=== PATIENT | female | born 1945 | race Caucasian/White ===

== ENCOUNTER 2017-04-20 16:13 | Inpatient (IN) | payer MEDICARE ==
[~2017-04-20] VITALS: Ht 157.5 cm; Wt 100.0 kg
[~2017-04-20 16:13] MED LIST: AMLO5TAB96 PO; DICL75 PO; FURO1TAB93 PO; HYDR-3533 PO; LORA-392 PO; LOSA50TA PO; METO50TA PO; MMW SSP; MSIR15 PO; OMEP20CA5 PO; PENI500T PO; POTA20IN3 PO; REME45TA PO
[2017-04-23] MEDS ORDERED: INSULIN HUMAN REGULAR 1,000 UNITS/10 ML VIAL SQ PRN (07:30)
[2017-04-23] MEDS ORDERED: LACTATED RINGER'S 1000 ML IV PRN (07:30)
[2017-04-23] MEDS ORDERED: SODIUM CHLORID 0.9% 500 ML IV PRN (07:30)
[2017-04-23] MEDS ORDERED: POVIDONE IODINE 5% (ANTISEPSIS KIT) 4 APPLICATIONS EACH NARE PRN (07:30)
[2017-04-23] MEDS ORDERED: CHLORHEXIDINE GLUCONATE 4% SOLN 120 ML BTL TOPICAL SCH (07:30)
[2017-04-23] MEDS ORDERED: METOPROLOL TARTRATE 25 MG TAB PO PRN (07:30)
[2017-04-23] MEDS ORDERED: CHLORHEXIDINE GLUCONATE 2 % 1 PACK (2 CLOTHS) TOPICAL PRN (07:30)
[2017-04-23] MEDS ORDERED: LOSA50TA PO (07:33)
[2017-04-23] MEDS ORDERED: METO50TA PO (07:33)
[2017-04-23] MEDS ORDERED: DICL75TA PO (07:33)
[2017-04-23] MEDS ORDERED: OMEP20TA PO (07:33)
[2017-04-23] MEDS ORDERED: AMLO5TAB2 PO (07:33)
[2017-04-23] MEDS ORDERED: LORA-373 PO (07:33)
[2017-04-23] MEDS ORDERED: MIRT45TA PO (07:33)
[2017-04-23] MEDS ORDERED: MSIR15 PO (07:33)
[2017-04-23] MEDS ORDERED: FURO40TA PO (07:33)
[2017-04-23] MEDS ORDERED: POTA-163 PO (07:33)
[2017-04-23 07:41] VITALS: BP 135/67; PULSE 55; RESP 20; TEMP 98.2; O2SAT 97
[2017-04-23] MEDS ORDERED: GENTAMICIN SULFATE 80 MG/2 ML VIAL ONE (07:52)
[2017-04-23] MEDS ORDERED: METF500T PO (08:02)
[2017-04-23] MEDS ORDERED: ZAFI1TAB7 PO (08:02)
[2017-04-23] MEDS ORDERED: HYDR-3583 PO ×2 (08:02→08:47)
[2017-04-23] MEDS ORDERED: TRAM50TA PO (08:05)
[2017-04-23] MEDS ORDERED: POTA10TA2 PO (08:05)
[2017-04-23] MEDS ORDERED: TRANEXAMIC ACID INJ 1,500 MG in SODIUM CHLORIDE 0.9% INJ 100 ML IV SCH (08:15)
[2017-04-23] MEDS ORDERED: FAMOTIDINE 20 MG/2 ML VIAL ONE (08:29)
[2017-04-23] MEDS ORDERED: ACETAMINOPHEN 1000 MG/100 ML VIAL IV ONE (08:29)
[2017-04-23] MEDS ORDERED: DEXAMETHASONE SOD PHOS 4 MG/ML VIAL ONE (08:30)
[2017-04-23] MEDS ORDERED: XARE10TA PO (08:47)
[2017-04-23] MEDS ORDERED: WALKER/ADULT/FO1 MIS (08:47)
--- NOTE | 2017-04-23 08:48 | HHI.FF ---
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 My clinical findings support the need for the requested home health care services because: Ltd mobility - disease progression I certify that my clinical findings support that this patient is homebound because: Post-op weakness Artem Martinez Apr 23, 2017 08:48
[2017-04-23] MEDS ORDERED: ceFAZolin 2 GM PREMIX 50 ML ONE (09:09)
[2017-04-23] MEDS ORDERED: SODIUM CHLOR 0.9% 250 ML INJ 250 ML ONE (09:09)
[2017-04-23] MEDS ORDERED: VANCOMYCIN HCL 1000 MG VIAL ONE (09:09)
[2017-04-23] MEDS ORDERED: VANCOMYCIN HCL 1000 MG VIAL OTHER ONE (09:15)
[2017-04-23] MEDS ORDERED: LORazepam 0.5 MG TAB PO PRN (11:15)
[2017-04-23] MEDS ORDERED: diphenhydrAMINE HCL 25 MG CAP PO PRN (11:15)
[2017-04-23] MEDS ORDERED: ONDANSETRON HCL 4 MG/2 ML VIAL IVP PRN (11:15)
[2017-04-23] MEDS ORDERED: Post-op Orders (for Pharmacy) MISC XX ONE (11:15)
[2017-04-23] MEDS ORDERED: SODIUM CHLORIDE 0.9% FLUSH 5 ML FLUSH IVF PRN (11:15)
[2017-04-23] MEDS ORDERED: MORPHINE SULFATE 15 MG TAB PO PRN (11:15)
[2017-04-23] MEDS ORDERED: NALOXONE HCL 0.4 MG/ML AMP IV PRN (11:15)
--- NOTE | 2017-04-23 11:16 | PD.OP ---
cc: Fernandez Blandon MD Operative Report Date of Surgery: Apr 23, 2017 Preoperative Diagnosis: Left distal femur fracture nonunion Postoperative Diagnosis: Procedure: Removal of deep hardware left femur, open treatment with plating of left distal femur fracture nonunion, iliac crest bone grafting with stem cell graft Surgeon: Fernandez Blandon Educational Manager(s): CANDELARIA James PA-C The surgical procedure was assisted by my physician transport assistant. My P.A. presence was necessary throughout this case for the manipulation and positioning of the surgical extremity. My P.A. was assisting me throughout the duration of this procedure. The skill set of a physician transport assistant was medically necessary to complete this procedure. During the surgical case the surgical product sales consultant was working at the back table and the physician transport assistant was directly assisting me. Operation and Findings: Diana previously had a left distal femur fracture treated with open reduction internal fixation. Patient has gone on to develop a nonunion of the fracture. Informed consent was obtained, and operative site was marked. Patient was brought to the OR, placed on OR table, and given IV sedation with GETA. IV antibiotics were administered and timeout procedure was performed. The operative leg was prepped with alcohol, followed with Hibiclens, draped in usual sterile fashion. A timeout procedure was performed. The procedure began with a 8-inch incision over the lateral aspect of the distal femur. Subcutaneous tissue was dissected with Bovie. Iliotibial band was split in line with fibers. At this point the plate was exposed. Scar tissue was incised. Vastus lateralis was elevated anteriorly. Screws were now loosened and removed. There was one broken screw that was removed with broken screw removal instruments. Fluoroscopy confirmed removal of all hardware. At this point the fracture was visualized. At this point attention was turned to debridement of the nonunion. Curettes and rongeurs were used to debride the fibrous tissue around the bone. A TPS bur was also used to debride the bone edges back to healthy bleeding bone. At this point attention was turned to reduction of fracture. Traction was applied. Fracture was manipulated. The fracture reduced into excellent alignment. Steinmann pins were used to hold provisional fixation. At this point attention was turned to plate placement. A Synthes lateral condylar plate was selected and placed underneath the vastus lateralis. Steinmann pins were used to hold the plate to bone. Multiplanar fluoroscopy confirmed appropriate placement of plate. Multiple 4.5 cortical screws were now placed to compress the plate to bone. A periarticular clamp was used to compress the distal femur to the plate. Multiple locking screws were now placed in the distal segment of the distal femur. Additional screws were placed into the femoral shaft. All screws were predrilled and premeasured for appropriate length. Wound was thoroughly irrigated. Next attention was turned to iliac crest bone grafting. A 3 cm incision was made over the iliac crest. The fascia was elevated off of bone. An osteotome was used to create a window in the cortex. Curettes were now used to obtain bone graft from the iliac crest. A Nucell stem cell graft was now opened and mixed with 3 cc of blood. The stem cells were now mixed with iliac crest. The defects around the fracture line of the distal femur were now packed with bone graft. Final fluoroscopy revealed excellent alignment of fracture with well- placed hardware. Fascia was closed with #1 Vicryl. Subcutaneous tissue was closed with 3-0 Vicryl. Skin was closed with dwayne. Sterile dressings were applied. The patient was placed into a knee immobilizer and transferred to recovery in stable condition. Needle and sponge counts were correct. Fernandez Blandon MD Apr 23, 2017 11:15
[2017-04-23] MEDS ORDERED: DO NOT ADM ANY ANTICOAGULANT DRUGS PRN (11:45)
[2017-04-23] MEDS ORDERED: MIDAZOLAM HCL 2 MG/2 ML VIAL ONE (11:58)
[2017-04-23] MEDS ORDERED: fentaNYL CITRATE 250 MCG/5 ML AMP ONE (11:58)
[2017-04-23] MEDS ORDERED: LACTATED RINGER'S 1000 ML INJ 1,000 ML IV ONE (12:00)
[2017-04-23] MEDS ORDERED: PROPOFOL 200 MG/20 ML AMP IV ONE (12:00)
[2017-04-23] MEDS ORDERED: ePHEDrine/NS 25 MG/5 ML SYR IV ONE (12:00)
[2017-04-23] MEDS ORDERED: NEOSTIGMINE 3 MG/3 ML SYR IV ONE (12:00)
[2017-04-23] MEDS ORDERED: ONDANSETRON HCL 4 MG/2 ML VIAL IV PUSH ONE (12:00)
[2017-04-23] MEDS ORDERED: *morphine SULFATE 8 MG/ML PERIprocedure ONLY ONE ×3 (12:25→13:17)
[2017-04-23 13:30] VITALS: BP 150/91; PULSE 62; RESP 18; TEMP 97.2; O2SAT 95
[2017-04-23] MEDS: CALCIUM/VITAMIN D 250 MG/125 U TAB PO SCH ×2 (13:56→16:58)
[2017-04-23] MEDS: ACETAMINOPHEN/HYDROcodone 325 MG/7.5 MG TAB PO PRN ×3 (13:57→22:37)
[2017-04-23] MEDS: LACTATED RINGER'S 1000 ML INJ 1,000 ML IV SCH (13:59)
[2017-04-23] MEDS ORDERED: ERGOCALCIFEROL (VIT D2) 50,000 UNIT CAP PO SCH (14:00)
--- NOTE | 2017-04-23 14:34 | RADRPT ---
EXAM DATE/TIME: 04/23/2017 10:49 [place] COMPARISON: No previous studies available for comparison. INDICATIONS : Left femur hardware removal. Open reduction internal fixation. MEDICAL HISTORY : None. SURGICAL HISTORY : None. ENCOUNTER: Initial ACUITY: 1 day PAIN SCORE: Non-responsive. LOCATION: Left Knee. CONCLUSION: Fluoroscopic images during placement of plate and screws along the distal left femur fixating fractur eGuerita Oneill MD on April 23, 2017 at 14:32 Board Certified Radiologist. This report was verified electronically.
--- NOTE | 2017-04-23 15:11 | EKG ---
Date Performed: 04/23/2017 Time Performed: 08:47:43 PTAGE: 71 years EKG: SINUS BRADYCARDIA Baseline artifact Compared to previous tracing, the patient is now bradyc ardic BORDERLINE ECG PREVIOUS TRACING : 09/10/1998 09.54 DOCTOR: Magda Squires Interpretating Date/Time 04/23/2017 15:10:26
[2017-04-23 16:00] VITALS: BP 124/61; PULSE 64; RESP 18; TEMP 96; O2SAT 95
[2017-04-23] MEDS: ceFAZolin 2 GM PREMIX 50 ML IV SCH (16:58)
[2017-04-23] MEDS: ZAFIRLUKAST 20 MG TAB PO SCH (16:58)
[2017-04-23] MEDS: MORPHINE SULFATE 4 MG/ML INJ IV PUSH PRN ×2 (16:58→19:59)
[2017-04-23 19:00] VITALS: BP 124/61; PULSE 87; RESP 16; TEMP 98.2; O2SAT 97
[2017-04-23] MEDS: DOCUSATE SODIUM 50 MG/SENNA 8.6 MG TAB PO SCH (20:02)
[2017-04-23] MEDS: POTASSIUM CHLORIDE 10 MEQ CONTROLLED RELEASE TAB PO SCH (20:03)
[2017-04-23] MEDS: METOPROLOL TARTRATE 50 MG TAB PO SCH (20:03)
[2017-04-23] MEDS: SODIUM CHLORIDE 0.9% FLUSH 5 ML FLUSH IVF SCH (20:04)
[2017-04-23] MEDS: MIRTAZAPINE 15 MG TAB PO SCH (20:04)
[2017-04-23] MEDS: FUROSEMIDE 40 MG TAB PO SCH (20:04)
[2017-04-23 22:20] VITALS: O2SAT 96
[2017-04-23] MEDS: VANCOMYCIN INJ 1,000 MG in SODIUM CHLOR 0.9% 250 ML INJ 250 ML IV SCH (22:23)
[2017-04-24] VITALS (7 sets, daily range): BP systolic 111–175; BP diastolic 58–74; PULSE 62–88; RESP 16–22; TEMP 96–99; O2SAT 93–100
[2017-04-24] MEDS: ceFAZolin 2 GM PREMIX 50 ML IV SCH ×3 (01:23→15:48)
[2017-04-24] MEDS: LACTATED RINGER'S 1000 ML INJ 1,000 ML IV SCH ×2 (01:27→15:00)
[2017-04-24] MEDS: MORPHINE SULFATE 4 MG/ML INJ IV PUSH PRN ×5 (04:41→19:28)
[2017-04-24 05:35] LABS: HEMATOCRIT 29.1 % (35.0-46.0); REVIEW FLAG FINAL
[2017-04-24] MEDS: ZAFIRLUKAST 20 MG TAB PO SCH ×2 (06:25→15:48)
--- NOTE | 2017-04-24 06:39 | PD.ORT.PN ---
Subjective Subjective Remarks Pain controlled. No new complaints Objective Vitals Vital Signs Date Time Temp Pulse Resp B/P Pulse Ox O2 Delivery O2 Flow Rate FiO2 04/24/17 04:00 97.4 62 16 175/71 98 04/24/17 00:00 98.3 88 17 175/74 99 04/23/17 22:20 96 Nasal Cannula 2.00 04/23/17 19:24 18 04/23/17 19:00 98.2 87 16 124/61 97 04/23/17 17:03 18 04/23/17 16:00 96.0 64 18 124/61 95 04/23/17 13:30 97.2 62 18 150/91 95 04/23/17 13:00 62 16 133/62 93 Nasal Cannula 2 04/23/17 12:45 67 16 146/65 93 Nasal Cannula 2 04/23/17 12:35 16 04/23/17 12:30 59 16 136/63 92 Nasal Cannula 2 04/23/17 12:15 61 14 154/77 92 Nasal Cannula 2 04/23/17 12:00 60 14 150/74 94 Simple Mask 04/23/17 11:45 65 14 152/79 95 Simple Mask 04/23/17 11:40 98.2 63 14 141/75 93 Simple Mask 04/23/17 07:41 98.2 55 20 135/67 97 I/O 04/23/17 04/23/17 04/23/17 04/24/17 04/24/17 04/24/17 07:00 15:00 23:00 07:00 15:00 23:00 Intake Total 480 ml 480 ml Output Total 2000 ml Balance 480 ml -1520 ml Intake Oral 480 ml 480 ml Output Urine Total 2000 ml # Voids 2 # Bowel Movements 0 0 Result Diagram: 04/24/17 0509 04/24/17 0509 Imaging Last 72 hours Impressions Knee X-Ray 04/23/17 0000 Signed Impressions: Service Date/Time: April 10:49 - CONCLUSION: Fluoroscopic images during placement of plate and screws along the distal left femur fixating fracture. Joao Oneill MD Objective Remarks Left lower extremity: Clean dry dressings intact. Immobilizer in place. Intact sensation distally with strong dorsiflexion and plantarflexion of feet Assessment & Plan Assessment and Plan Left distal femur nonunion status post removal of hardware and ORIF with iliac crest bone graft and stem cell POD 1 Nonweightbearing left lower extremity Knee immobilizer at all times except for passive range of motion of knee [employer] for lifting strap on knee immobilizer Lovenox Incentive spirometry Plan for discharge to home on Thursday We'll work toward getting approval for [facility] Case management for dressing changes Jacinto Jimenez Jr. Apr 24, 2017 06:39
[2017-04-24] MEDS: METOPROLOL TARTRATE 50 MG TAB PO SCH ×2 (08:32→21:17)
[2017-04-24] MEDS: LOSARTAN 50 MG TAB PO SCH (08:32)
[2017-04-24] MEDS: CHOLECALCIFEROL (VIT D3) 1000 UNIT TAB PO SCH (08:32)
[2017-04-24] MEDS: amLODIPine BESYLATE 5 MG TAB PO SCH (08:32)
[2017-04-24] MEDS: POTASSIUM CHLORIDE 10 MEQ CONTROLLED RELEASE TAB PO SCH ×2 (08:32→21:17)
[2017-04-24] MEDS: CALCIUM/VITAMIN D 250 MG/125 U TAB PO SCH ×3 (08:32→17:44)
[2017-04-24] MEDS: ACETAMINOPHEN/HYDROcodone 325 MG/7.5 MG TAB PO PRN ×5 (08:33→21:17)
[2017-04-24] MEDS: metFORMIN HCL 500 MG TAB PO SCH (08:33)
[2017-04-24] MEDS: FUROSEMIDE 40 MG TAB PO SCH ×2 (08:33→17:45)
[2017-04-24] MEDS: PANTOPRAZOLE SOD 20 MG DELAYED RELEASE TAB PO SCH (08:33)
[2017-04-24] MEDS: DOCUSATE SODIUM 50 MG/SENNA 8.6 MG TAB PO SCH ×2 (08:33→21:17)
[2017-04-24] MEDS: VANCOMYCIN INJ 1,000 MG in SODIUM CHLOR 0.9% 250 ML INJ 250 ML IV SCH ×2 (08:34→21:17)
[2017-04-24] MEDS: SODIUM CHLORIDE 0.9% FLUSH 5 ML FLUSH IVF SCH ×2 (08:40→21:18)
[2017-04-24] MEDS: ENOXAPARIN SODIUM 30 MG/0.3 ML SYRINGE SQ SCH (11:21)
[2017-04-24] MEDS: MIRTAZAPINE 15 MG TAB PO SCH (21:17)
[2017-04-25] VITALS (8 sets, daily range): BP systolic 108–193; BP diastolic 55–79; PULSE 70–82; RESP 17–19; TEMP 97.4–100.9; O2SAT 94–99
[2017-04-25] MEDS: ceFAZolin 2 GM PREMIX 50 ML IV SCH ×2 (00:55→07:44)
[2017-04-25] MEDS: LACTATED RINGER'S 1000 ML INJ 1,000 ML IV SCH ×2 (00:55→16:00)
[2017-04-25] MEDS: ACETAMINOPHEN/HYDROcodone 325 MG/7.5 MG TAB PO PRN ×6 (00:55→20:55)
[2017-04-25] MEDS ORDERED: BACITRACIN TOP OINT 15 GM TUBE TOPICAL PRN (03:30)
[2017-04-25] MEDS: ZAFIRLUKAST 20 MG TAB PO SCH ×2 (05:15→15:45)
--- NOTE | 2017-04-25 06:50 | PD.ORT.PN ---
Subjective Subjective Remarks POD 2 s/p AYESHA with ORIF and ICBG left distal femur -doing well. reports pain in leg. out of bed with therapy Objective Vitals Vital Signs Date Time Temp Pulse Resp B/P Pulse Ox O2 Delivery O2 Flow Rate FiO2 04/25/17 06:02 97.4 72 18 130/69 97 04/25/17 00:14 98.0 70 18 128/55 96 04/24/17 20:49 97.7 76 18 137/65 95 04/24/17 19:33 18 04/24/17 18:45 18 04/24/17 17:46 127/63 04/24/17 16:00 96.0 64 20 111/58 93 04/24/17 12:00 97.4 64 22 125/67 97 04/24/17 08:00 99.0 69 22 125/60 93 I/O 04/24/17 04/24/17 04/24/17 04/25/17 04/25/17 04/25/17 07:00 15:00 23:00 07:00 15:00 23:00 Intake Total 480 ml 240 ml 2534 ml 906 ml Output Total 2000 ml 3000 ml 400 ml Balance -1520 ml -2760 ml 2534 ml 506 ml Intake Oral 480 ml 240 ml 480 ml IV Total 2534 ml 426 ml Output Urine Total 2000 ml 3000 ml 400 ml # Bowel Movements 0 Result Diagram: 04/24/17 0509 04/24/17 0509 Imaging Last 72 hours Impressions Knee X-Ray 04/23/17 0000 Signed Impressions: Service Date/Time: April 10:49 - CONCLUSION: Fluoroscopic images during placement of plate and screws along the distal left femur fixating fracture. Joao Oneill MD Objective Remarks Left lower extremity: Clean dry dressings intact. Immobilizer in place. Intact sensation distally with strong dorsiflexion and plantarflexion of feet Assessment & Plan Assessment and Plan 1) Left distal femur nonunion status post removal of hardware and ORIF with iliac crest bone graft and stem cell POD 2 Nonweightbearing left lower extremity Knee immobilizer at all times except for passive range of motion of knee Lovenox Incentive spirometry Plan for discharge to home on Thursday with [facility] We'll work toward getting approval for [facility] Case management for dressing changes f/u with Kaylyn or PA in 2 weeks Artem Martinez Apr 25, 2017 06:50
[2017-04-25] MEDS: metFORMIN HCL 500 MG TAB PO SCH (07:41)
[2017-04-25] MEDS: PANTOPRAZOLE SOD 20 MG DELAYED RELEASE TAB PO SCH (07:41)
[2017-04-25] MEDS: LOSARTAN 50 MG TAB PO SCH (07:41)
[2017-04-25] MEDS: MORPHINE SULFATE 4 MG/ML INJ IV PUSH PRN ×4 (07:41→23:06)
[2017-04-25] MEDS: CHOLECALCIFEROL (VIT D3) 1000 UNIT TAB PO SCH (07:42)
[2017-04-25] MEDS: CALCIUM/VITAMIN D 250 MG/125 U TAB PO SCH ×3 (07:42→17:55)
[2017-04-25] MEDS: METOPROLOL TARTRATE 50 MG TAB PO SCH ×2 (07:43→20:54)
[2017-04-25] MEDS: POTASSIUM CHLORIDE 10 MEQ CONTROLLED RELEASE TAB PO SCH ×2 (07:43→20:54)
[2017-04-25] MEDS: SODIUM CHLORIDE 0.9% FLUSH 5 ML FLUSH IVF SCH ×2 (07:54→20:53)
[2017-04-25] MEDS: FUROSEMIDE 40 MG TAB PO SCH ×2 (07:54→17:52)
[2017-04-25] MEDS: DOCUSATE SODIUM 50 MG/SENNA 8.6 MG TAB PO SCH ×2 (07:55→20:54)
[2017-04-25] MEDS: amLODIPine BESYLATE 5 MG TAB PO SCH (08:00)
[2017-04-25] MEDS: ENOXAPARIN SODIUM 30 MG/0.3 ML SYRINGE SQ SCH (11:05)
[2017-04-25] MEDS: MIRTAZAPINE 15 MG TAB PO SCH (20:54)
[2017-04-26] VITALS: BP 112/59; PULSE 79; RESP 18; TEMP 99.9; O2SAT 97
[2017-04-26] MEDS: ACETAMINOPHEN/HYDROcodone 325 MG/7.5 MG TAB PO PRN ×5 (02:36→15:13)
[2017-04-26] MEDS: LACTATED RINGER'S 1000 ML INJ 1,000 ML IV SCH (04:30)
[2017-04-26] MEDS: ZAFIRLUKAST 20 MG TAB PO SCH ×2 (06:07→16:00)
--- NOTE | 2017-04-26 06:45 | PD.ORT.PN ---
Subjective Subjective Remarks POD 3 s/p AYESHA with ORIF and ICBG left distal femur -doing well. reports pain in leg. out of bed with therapy. improving Objective Vitals Vital Signs Date Time Temp Pulse Resp B/P Pulse Ox O2 Delivery O2 Flow Rate FiO2 04/26/17 00:00 99.9 79 18 112/59 97 04/25/17 21:21 98 21 04/25/17 19:58 100.4 75 19 135/79 98 04/25/17 16:00 100.9 79 18 108/57 95 04/25/17 15:51 16 04/25/17 15:34 16 04/25/17 12:11 94 21 04/25/17 12:00 98.6 71 17 121/65 95 04/25/17 08:00 99.3 71 17 158/70 98 I/O 04/25/17 04/25/17 04/25/17 04/26/17 04/26/17 04/26/17 07:00 15:00 23:00 07:00 15:00 23:00 Intake Total 906 ml 960 ml 360 ml Output Total 400 ml Balance 506 ml 960 ml 360 ml Intake Oral 480 ml 960 ml 360 ml IV Total 426 ml Output Urine Total 400 ml # Voids 9 3 # Bowel Movements 1 0 Result Diagram: 04/24/17 0509 04/24/17 0509 Imaging Last 72 hours Impressions Knee X-Ray 04/23/17 0000 Signed Impressions: Service Date/Time: April 10:49 - CONCLUSION: Fluoroscopic images during placement of plate and screws along the distal left femur fixating fracture. Joao Oneill MD Objective Remarks Left lower extremity: Clean dry dressings intact. Immobilizer in place. Intact sensation distally with strong dorsiflexion and plantarflexion of feet Assessment & Plan Assessment and Plan 1) Left distal femur nonunion status post removal of hardware and ORIF with iliac crest bone graft and stem cell POD 3 Nonweightbearing left lower extremity Knee immobilizer at all times except for passive range of motion of knee Lovenox Incentive spirometry Plan for discharge to home today with [facility] We'll work toward getting approval for [facility] Case management for dressing changes f/u with Kaylyn or [facility] in 2 weeks Artem Martinez Apr 26, 2017 06:45
--- NOTE | 2017-04-26 06:48 | HHI.DS ---
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 Immobilizer in place. Intact sensation distally with strong dorsiflexion and plantarflexion of feet Hospital Course Patient admitted from outpatient basis due to nonunion of a previous ORIF of the left distal femur fracture. Total procedure well and was admitted 6 north. She is out of bed on postop day 1 with therapy. Motion was begun on postoperative day 1. Her pain was relatively well tolerated. She is ambulating with a walker on postoperative day 2. On possibly 3, she was ambulating with a walker, controlled, she is hemodynamically stable and fit for discharge home with home healthcare services. She'll be discharged home today with home health care. She will remain nonweightbearing on left leg. She'll maintain her knee was also positive support on passive motion of the knee. She' ll perform daily dressing changes of the left knee. She'll follow Dr. Patiño or his PA in 2 weeks Pt Condition on Discharge: Fair Discharge Disposition: Disch w/ Home Health Serv Discharge Instructions Diet Instructions: As Tolerated, No Restrictions Activities You Can Perform: Non Weight Bearing Follow up Referrals: Orthopedics - 05/07/17 @ [facility] with Fernandez Patiño MD New Medications: Hydrocodone-Acetaminophen (Hydrocodone-Acetaminophen) 10-325 mg Tab 1 TAB PO Q4H PRN PAIN #60 Ref 0 TAB Rivaroxaban (Xarelto) 10 Mg Tab 10 MG PO DAILY Blood Clot Prevention #21 Ref 0 TAB Walker/Adult/Folding (Walker/Adult/Folding) 1 Mis Mis 1 EA .ROUTE DIRECTED #1 Ref 0 EA Continued Medications: Amlodipine (Amlodipine) 5 Mg Tab 5 MG PO DAILY Blood Pressure Management #30 Ref 0 TAB Furosemide (Furosemide) 40 Mg Tab 40 MG PO BID #60 Ref 0 TAB Lorazepam (Lorazepam) 0.5 Mg Tab 0.5 MG PO BID PRN ANXIETY Ref 0 TAB Losartan (Losartan) 50 Mg Tab 50 MG PO DAILY Blood Pressure Management #30 Ref 0 TAB Metformin (Metformin) 500 Mg Tab 500 MG PO DAILY With meals Blood Sugar Management #60 Ref 0 TAB Metoprolol Tartrate (Metoprolol Tartrate) 50 Mg Tab 50 MG PO BID #60 Ref 0 TAB Mirtazapine (Mirtazapine) 45 Mg Tab 45 MG PO HS Depression Control #30 Ref 0 TAB Morphine IR (Morphine IR) 15 Mg Tab 15 MG PO Q4H PRN PAIN Ref 0 TAB Omeprazole (Omeprazole) 20 Mg Tab 20 MG PO DAILY #30 Ref 0 TAB Potassium Chloride ER (Potassium Chloride ER) 10 Meq Tab 10 MEQ PO BID Electrolyte Replacement #60 Ref 0 TAB Zafirlukast (Accolate) 20 Mg Tab 20 MG PO BIDAC Asthma Management #60 Ref 0 TAB Discontinued Medications: Hydrocodone-Acetaminophen (Hydrocodone-Acetaminophen) 10-325 mg Tab 1 TAB PO Q6H PRN PAIN Ref 0 TAB Tramadol (Tramadol) 50 Mg Tab 50 MG PO Q6H PRN PAIN Ref 0 TAB Artem Martinez Apr 26, 2017 06:48
[2017-04-26 08:00] VITALS: BP 162/64; PULSE 74; RESP 20; TEMP 98.5; O2SAT 93
[2017-04-26] MEDS: SODIUM CHLORIDE 0.9% FLUSH 5 ML FLUSH IVF SCH (09:00)
[2017-04-26] MEDS: FUROSEMIDE 40 MG TAB PO SCH (09:00)
[2017-04-26] MEDS: metFORMIN HCL 500 MG TAB PO SCH (09:24)
[2017-04-26] MEDS: CHOLECALCIFEROL (VIT D3) 1000 UNIT TAB PO SCH (09:24)
[2017-04-26] MEDS: PANTOPRAZOLE SOD 20 MG DELAYED RELEASE TAB PO SCH (09:24)
[2017-04-26] MEDS: CALCIUM/VITAMIN D 250 MG/125 U TAB PO SCH ×2 (09:25→12:31)
[2017-04-26] MEDS: DOCUSATE SODIUM 50 MG/SENNA 8.6 MG TAB PO SCH (09:25)
[2017-04-26] MEDS: METOPROLOL TARTRATE 50 MG TAB PO SCH (09:25)
[2017-04-26] MEDS: amLODIPine BESYLATE 5 MG TAB PO SCH (09:25)
[2017-04-26] MEDS: LOSARTAN 50 MG TAB PO SCH (09:25)
[2017-04-26] MEDS: POTASSIUM CHLORIDE 10 MEQ CONTROLLED RELEASE TAB PO SCH (09:26)
[2017-04-26] MEDS: ENOXAPARIN SODIUM 30 MG/0.3 ML SYRINGE SQ SCH (09:27)
[2017-04-26 12:00] VITALS: BP 142/69; PULSE 67; RESP 20; TEMP 97.8; O2SAT 96
[2017-04-26 16:15] VITALS: RESP 16
== END 2017-04-26 17:04 | disposition home health service (06) | DRG 481 ==
LOC: HSDI 04-23 06:47 → N06B 04-23 13:24
PROVIDERS: ADMIT Orthopaedic Surgery Orthopaedic Trauma; ATTEND Orthopaedic Surgery Orthopaedic Trauma
PROC: 0QPC04Z Removal of Internal Fixation Device from Left Lower Femur, Open Approach (ICD-10-PCS; 2017-04-23)
PROC: 0QB30ZZ Excision of Left Pelvic Bone, Open Approach (ICD-10-PCS; 2017-04-23)
PROC: 0QUC07Z Supplement Left Lower Femur with Autologous Tissue Substitute, Open Approach (ICD-10-PCS; 2017-04-23)
PROC: 0QSC04Z Reposition Left Lower Femur with Internal Fixation Device, Open Approach (ICD-10-PCS; principal; 2017-04-23 09:01)
DX: S72.402K Unspecified fracture of lower end of left femur, subsequent encounter for closed fracture with nonunion (principal); Z68.41 Body mass index [BMI] 40.0-44.9, adult; J44.9 Chronic obstructive pulmonary disease, unspecified; I10 Essential (primary) hypertension; I25.10 Atherosclerotic heart disease of native coronary artery without angina pectoris; E78.5 Hyperlipidemia, unspecified; J45.909 Unspecified asthma, uncomplicated; E66.9 Obesity, unspecified; E11.9 Type 2 diabetes mellitus without complications; Z79.84 Long term (current) use of oral hypoglycemic drugs; M81.0 Age-related osteoporosis without current pathological fracture
CPT/HCPCS: 73560; 76000; 82565; 82652; 82948; 85014; 85018; 87015; 87070; 87102; 87116; 87176; 87205; 87206; 93005; 94150; C1713; C1769; J0131; J0690; J1100; J1580; J1650; J2250; J2270; J2405; J2710; J3010; J3370; J7050; J7120; L1830

== ENCOUNTER 2017-04-26 19:46 | Emergency (ER) | payer MEDICARE ==
[~2017-04-26] VITALS: Ht 162.6 cm; Wt 78.0 kg
[~2017-04-26 19:46] MED LIST changes: +AMLO5TAB2 PO; -AMLO5TAB96 PO; -DICL75 PO; -FURO1TAB93 PO; +FURO40TA PO; -HYDR-3533 PO; +HYDR-3583 PO; +LORA-373 PO; -LORA-392 PO; +METF500T PO; +MIRT45TA PO; -MMW SSP; -OMEP20CA5 PO; +OMEP20TA PO; -PENI500T PO; +POTA10TA2 PO; -POTA20IN3 PO; -REME45TA PO; +WALKER/ADULT/FO1 MIS; +XARE10TA PO; +ZAFI1TAB7 PO
[2017-04-26 20:09] VITALS: BP 108/56; PULSE 73; RESP 16; TEMP 98.5; O2SAT 96
--- NOTE | 2017-04-26 20:18 | PD ---
HPI Chief Complaint: Bleeding Time Seen by Provider: 20:10 Travel History International Travel<30 days: No Contact w/Intl Traveler<30days: No History of Present Illness HPI Patient comes to the emergency department after just being released from the hospital earlier today after having surgery in her left femur. Patient concerned after she had some drainage coming through her bandage today. Patient denies any pain with this. Denies any fevers. Patient is uncertain if she is on any blood thinners but states she did receive a shot of something in her abdomen while in the hospital.. Patient states she tried to reinforced the dressing however it weep through that as well. Patient denies anything making it better or worse. PFSH Past Medical History Arthritis: Yes Asthma: Yes Anxiety: Yes Cancer: No Cardiovascular Problems: Yes Diabetes: Yes Endocrine: Yes Genitourinary: No Hypertension: Yes Musculoskeletal: Yes (arthritis) Neurologic: Yes Psychiatric: Yes Reproductive: No Respiratory: Yes (Hx asthma) Migraines: Yes Past Surgical History Abdominal Surgery: Yes (Appendectomy) Appendectomy: Yes Section: Yes (x3) Gynecologic Surgery: Yes ( x 3) Joint Replacement: Yes (x 2, shoulder) Oral Surgery: Yes (Tonsillectomy) Social History Alcohol Use: No Tobacco Use: No Substance Use: No Allergies-Medications (Allergen,Severity, Reaction): Coded Allergies: Aspirin (Verified Allergy, Severe, 04/26/17) Reported Meds & Prescriptions Reported Meds & Active Scripts Active Xarelto (Rivaroxaban) 10 Mg Tab 10 Mg PO DAILY Hydrocodone-Acetaminophen 10-325 mg Tab 1 Tab PO Q4H PRN Walker/Adult/Folding (Device) 1 Mis Mis 1 Ea .ROUTE DIRECTED Reported Potassium Chloride ER (Potassium Chloride) 10 Meq Tab 10 Meq PO BID Metformin (Metformin HCl) 500 Mg Tab 500 Mg PO DAILY With meals Accolate (Zafirlukast) 20 Mg Tab 20 Mg PO BIDAC Omeprazole 20 Mg Tab 20 Mg PO DAILY Morphine IR (Morphine Sulfate) 15 Mg Tab 15 Mg PO Q4H PRN Mirtazapine 45 Mg Tab 45 Mg PO HS Metoprolol Tartrate 50 Mg Tab 50 Mg PO BID Losartan (Losartan Potassium) 50 Mg Tab 50 Mg PO DAILY Lorazepam 0.5 Mg Tab 0.5 Mg PO BID PRN Furosemide 40 Mg Tab 40 Mg PO BID Amlodipine (Amlodipine Besylate) 5 Mg Tab 5 Mg PO DAILY Review of Systems Except as stated in HPI: all other systems reviewed are Neg Physical Exam Narrative GENERAL: Well-developed, overly nourished, in no acute distress, and non-ill appearing. SKIN: Focused skin assessment warm and dry. [place] noted left lateral side distally. There dry clean intact. There is no seeping, drainage, crepitus, fluctuation, tenderness, erythematous, or other signs for any concern. HEAD: Atraumatic. Normocephalic. EYES: Pupils equal and round. EOMI. No scleral icterus. No injection or drainage. ENT: No nasal bleeding or discharge. Mucous membranes pink and moist. NECK: Trachea midline. Supple. No nuclear rigidity. RESPIRATORY: No accessory muscle use. No respiratory distress. MUSCULOSKELETAL: No obvious deformities. No clubbing. No cyanosis. No edema. Decreased range of motion. Left lower extremity secondary to recent surgery and knee immobilizer. NEUROLOGICAL: Awake and alert. No obvious cranial nerve deficits. Motor grossly within normal limits. Normal speech. PSYCHIATRIC: Appropriate mood and affect; insight and judgment normal. Data Data Last Documented VS Vital Signs Date Time Temp Pulse Resp B/P Pulse Ox O2 Delivery O2 Flow Rate FiO2 04/26/17 20:15 71 16 95 Room Air 04/26/17 20:09 98.5 108/56 Orders Immobilizer Knee 20 Inch (04/26/17 ) [facility] Medical Decision Making Medical Screen Exam Complete: Yes Emergency Medical Condition: Yes Differential Diagnosis Wound dehiscence, wound infection, wound check, other Narrative Course Patient in no obvious distress upon re-evaluation. Discussed patient with Dr. Castillo, who saw and evaluated the patient is in agreement with plan of care and disposition. Dressing was changed. Patient was reassured. Any questions/ concerns in reference to patient diagnosis/condition discussed and clarified prior to patient's discharge. Reinforced sheer importance of close follow up with patient's primary physician or primary care clinic and surgeon as previously instructed. Instructed patient to return to ED immediately, if symptoms return/worsen. Pt showed understanding of above instructions. Further instructions and recommendations were detailed in discharge paperwork. Pt ambulated without difficulty out of ED at discharge. Diagnosis Primary Impression: Encounter for post surgical wound check Patient Instructions: General Instructions Additional Instructions: Follow-up with your surgeon as scheduled. Continue wound care as previously instructed at discharge. Follow all previous discharge instructions from earlier today. Return to the emergency department if symptoms get worse. Disposition: 01 DISCHARGE HOME Condition: Stable Ian Dutton Apr 26, 2017 20:18
== END 2017-04-26 21:25 | disposition home or self-care (01) ==
LOC: NEPD 19:46
DX: Z98.890 Other specified postprocedural states (principal); M13.88 Other specified arthritis, other site; J45.909 Unspecified asthma, uncomplicated; E11.9 Type 2 diabetes mellitus without complications; I10 Essential (primary) hypertension; F41.9 Anxiety disorder, unspecified
CPT/HCPCS: 99283; L1830